=== PATIENT | female | born 2000 | race African-American/Black ===

== ENCOUNTER 2020-07-11 18:34 | Emergency (ER) | payer OTHER, MEDICAID ==
[~2020-07-11] VITALS: Ht 160 cm; Wt 104.3 kg
[2020-07-11 18:34] VITALS: BP_SYST 139
[2020-07-11] MEDS ORDERED: ACETAMINOPHEN 325 MG TABLET PO ONE (19:00)
[2020-07-11] MEDS ORDERED: IBUPROFEN 400 MG TABLET PO ONE (19:00)
[2020-07-11 19:40] VITALS: BP_SYST 139
== END 2020-07-11 19:40 | disposition home or self-care (01) ==
LOC: SED 18:34
DX: M25.561 Pain in right knee (principal); V49.9XXA Car occupant (driver) (passenger) injured in unspecified traffic accident, initial encounter; Y93.89 Activity, other specified; Y92.89 Other specified places as the place of occurrence of the external cause; Y99.8 Other external cause status
CPT/HCPCS: 73564; 99283